=== PATIENT | female | born 1940 | race Caucasian/White ===

== ENCOUNTER → 2019-07-23 | Day surgery (SDC) | payer MEDICARE, OTHER ==
[2019-07-21 13:50] LABS: BASOPHILS # (AUTO) 0.1 (0.0-0.1); BASOPHILS % 1.1 % (0.0-1.0); EOSINOPHILS # (AUTO) 0.1 (0.0-0.4); EOSINOPHILS % 2.3 % (0.0-6.0); HEMATOCRIT 38.8 % (34.2-44.1); HEMOGLOBIN 13.1 g/dL (12.0-16.0); LYMPHOCYTES # (AUTO) 1.6 (1.0-3.2); LYMPHOCYTES % 30.8 % (18.0-39.1); MEAN CORPUSCULAR HEMOGLOBIN 31.1 pg (28-32); MEAN CORPUSCULAR HGB CONC 33.8 g/dL (31-35); MEAN CORPUSCULAR VOLUME 92.2 fL (81-99); MONOCYTES # (AUTO) 0.6 (0.2-0.8); MONOCYTES % 10.8 % (4.4-11.3); NEUTROPHILS # (AUTO) 2.9 (2.1-6.9); NEUTROPHILS % 54.8 % (38.7-80.0); PLATELET COUNT 260 x10e3/uL (140-360); RED BLOOD COUNT 4.21 x10e6/uL (3.6-5.1); RED CELL DISTRIBUTION WIDTH 12.7 % (11.7-14.4)
[~2019-07-23] MED LIST: EPINEPHRINE HCL 1:1000 1ML 1 MG/ML AMP ONE; LIDOCAINE HCL 2% LOCAL INJ 5 ML SDV VIAL INJ ONE; LOSARTAN POTASS25 MG PO; METOCLOPRAMIDE HCL 10 MG/2ML VIAL ONE; METOPROLOL PO; PEPCID20 MG PO; PROPOFOL IV EMULSION 10 MG/ML 20 ML VIAL ONE; PROPOFOL IV EMULSION 10 MG/ML 50 ML VIAL ONE
--- OUTSIDE RECORDS SUMMARY | 2019-07-23 09:27 | XMS REPORT ---
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 Allergies, Adverse Reactions, Alerts This patient has no known allergies or adverse reactions. Medications This patient has no known medications. Results Test Description Test Time Test Comments Text Results Atomic Results Result Comments BREAST ULTRASOUND BILATERAL 2018-10-30 09:27:20 - BREAST ULTRASOUND BILATERALULTRASOUND OF BOTH BREASTS AND BOTH AXILLA: 10/29/2018CLINICAL: Followup to previous exam. Comparison is made to exams dated 08/06/2017 ultrasound, 07/13/2015 ultrasound, and 06/09/2014 ultrasound - [facility]-. Real-time ultrasound was performed bilaterally. Both breasts have been surgically removed. Bilateral implants are intact. No cystic or solid mass, architectural distortion, or abnormal acoustic shadowing detected. No abnormalities were seen sonographically in either axilla. Clinical breast exam was unremarkable. IMPRESSION: NEGATIVE - FOLLOW-UP RECOMMENDEDThere is no sonographic evidence of malignancy. A follow-up ultrasound in 12 months is recommended. Cecile Lazar M.D. dm/:10/30/2018 09:27:20 Entry: - 11/01/2018 08:03:29copy to: Kash Foy MD, ph: [phone], fax: [phone] Technologist: Sylvia CHEN, [facility]-FWletter sent: BIRADS 1-2 Combo FU Letter Ultrasound BI-RADS: 1 Negative
[2019-07-23 13:45] VITALS: BP 142/85
--- NOTE | 2019-07-23 20:04 | Operative Report ---
DATE OF PROCEDURE: 07/23/2019 SURGEON: Jonathon Beltre MD PROCEDURES: Esophagogastroduodenoscopy with esophageal dilatation and biopsies. INDICATIONS FOR EGD: Dysphagia, heartburn, indigestion. MEDICATIONS: The patient was done under MAC, please see anesthesiologist's note. PROCEDURE IN DETAIL: With the patient in the left lateral decubitus position, flexible fiberoptic Olympus gastroscope was introduced into the esophagus under direct visualization without any difficulty. There were some patchy erythema noted in distal esophagus. A mild stricture was noted at the GE junction that was dilated to size 54-[place] Arnett. The scope was then advanced with ease into the stomach traversing a moderate-sized hiatal hernia. Mucosa overlying the antrum and the body revealed some patchy erythema and [id number] edema and biopsies were obtained and sent to stain for H pylori. Pylorus was of normal contour and shape, was intubated with ease and the scope was advanced with ease all the way to the second portion of the duodenum. The scope was then withdrawn slowly. Mucosa overlying the proximal and second portion and duodenal bulb appeared to be within normal limits. The scope was then withdrawn back into the stomach and retroflexed, and the patient appears to have a loose or failed Eric fundoplication. The scope was then straightened out, it was subsequently withdrawn. The patient tolerated the procedure well. IMPRESSION: 1. Distal esophagitis. 2. Esophageal stricture at gastroesophageal junction dilated to size 54-[place] Arnett. 3. Moderate-sized hiatal hernia. 4. Gastritis, biopsied, biopsies sent to stain for Helicobacter pylori. PLAN: Follow up histology. Initiate AcipHex 20 mg one p.o. q.a.m. before meals. Jonathon Beltre MD [facility] [place]/[facility] /[id number] cc: Agustin Cabrera MD
== END | disposition home or self-care (01) ==
LOC: OR 09:16
PROVIDERS: ATTEND Internal Medicine Gastroenterology
DX: R13.10 Dysphagia, unspecified (principal); R12 Heartburn; Z01.810 Encounter for preprocedural cardiovascular examination; Z01.812 Encounter for preprocedural laboratory examination; Z88.8 Allergy status to other drugs, medicaments and biological substances; I10 Essential (primary) hypertension; E78.00 Pure hypercholesterolemia, unspecified; K44.9 Diaphragmatic hernia without obstruction or gangrene; Z85.3 Personal history of malignant neoplasm of breast; K20.9 Esophagitis, unspecified; K29.50 Unspecified chronic gastritis without bleeding; K22.2 Esophageal obstruction; K22.70 Barrett's esophagus without dysplasia
CPT/HCPCS: 36415; 43239; 43450; 85025; 88305; 88312; 93005; J0171; J2001; J2704 ×2; J2765